=== PATIENT | female | born 1950 | race Caucasian/White ===

== ENCOUNTER 2019-09-28 12:18 | Inpatient (IN) | payer OTHER ==
[2019-09-27 13:11] VITALS: BMI 30.1
[~2019-09-28 12:18] MED LIST: PROPOFOL 200 MG/20 ML VIAL ONE
[2019-09-28] MEDS ORDERED: Fentanyl 100 MCG/2 ML VIAL ONE (15:09)
[2019-09-28] MEDS ORDERED: Acetaminophen 325 MG TAB PO PRN (16:13)
[2019-09-28] MEDS ORDERED: Dextrose 5% in Water 1,000 ML IV PRN (16:30)
[2019-09-28] MEDS ORDERED: Dextrose 50% Abboject 50 ML SYRINGE SLOW IVP PRN (16:30)
[2019-09-28] MEDS ORDERED: Sodium Chloride 0.9% (PF) 10 ML VIAL FS PRN (16:46)
[2019-09-28 18:42] LABS: #Basophils 0.1 thou/uL (0.0-0.2); #Eosinphils 0.5 thou/uL (0.0-0.7); #Lymphocytes 2.3 thou/uL (1.20-3.40); #Monocytes 0.7 thou/uL (0.11-0.59); #Neutrophils 6.5 thou/uL (1.40-6.50); %Eosinophils 5.2 % (0.0-10.0); %Lymphocytes 22.8 % (21.0-51.0); Hemoglobin 7.3 g/dL (12.0-16.0); Mean Corpuscular HGB CONC 31.9 g/dL (32.0-36.0); Mean Corpuscular Hemoglobin 28.8 pg (27.0-31.0); Mean Corpuscular Volume 90.3 fL (78.0-98.0); Mean Platelet Volume 7.1 fL (7.4-10.4); Platelet Count 387 thou/uL (130-400); RBC Distribution Width 15.2 % (11.5-14.5); Red Blood Cell (RBC) Count 2.53 mill/uL (4.20-5.40); White Blood Cell (WBC) Count 10.1 thou/uL (4.8-10.8)
[2019-09-28 18:48] LABS: PTT 26.8 SEC (22.9-36.1); Prothrombin Time 13.4 SEC (12.0-14.7)
[2019-09-28] MEDS ORDERED: [UNRECOGNIZED DRUG - REMARK] FS PRN (18:55)
[2019-09-28 19:06] LABS: ALT (SGPT) 15 U/L (8-55); AST (SGOT) 17 U/L (5-34); Albumin 3.6 g/dL (3.4-4.8); Alkaline Phosphatase 47 U/L (40-110); Anion Gap 7 mmol/L (10-20); BUN (Urea Nitrogen) 9 mg/dL (9.8-20.1); Bilirubin, Total 0.4 mg/dL (0.2-1.2); Calc. Creatinine Clearance 94 mL/min (70-130); Calcium 8.7 mg/dL (7.8-10.44); Carbon Dioxide 26 mmol/L (23-31); Chloride 109 mmol/L (98-107); Estimated GFR-MDRD 82; Globulin 2.4 g/dL (2.4-3.5); Glucose 110 mg/dL (80-115); Potassium 3.8 mmol/L (3.5-5.1); Sodium 138 mmol/L (136-145)
[2019-09-28] MEDS: Pantoprazole 40 MG VIAL IVP SCH (20:57)
[2019-09-28] MEDS: Atorvastatin Calcium 40 MG TAB PO SCH (20:57)
[2019-09-28] MEDS: Carvedilol 6.25 MG TAB PO SCH (20:57)
[2019-09-28] MEDS: HumaLOG 300 UNITS/3 ML VIAL SC PRN (20:58)
[2019-09-28] MEDS ORDERED: Carvedilol 6.25 MG TAB PO SCH (21:00)
[2019-09-28] MEDS ORDERED: TICAGRELOR 90 MG TABLET PO SCH (21:00)
--- NOTE | 2019-09-28 23:37 | HP ---
CHIEF COMPLAINT: Post EGD with bleeding duodenal ulcers. HISTORY OF PRESENT ILLNESS: This patient is a 69-year-old female who has a history of prior evidence of GI bleed and blood-loss anemia. The patient previously undergone EGD and colonoscopy a year ago that did not reveal any sources. She subsequently had recurrent anemia requiring transfusions and iron infusions. However, her anemia continue to recur. She subsequently underwent a capsule endoscopy, which revealed blood immediately upon entering the duodenum. Therefore, the patient was brought back for a repeat endoscopy today. Today, the patient had noted multiple duodenal ulcers, two of which had stigmata of high risk for bleeding and were cauterized. The patient is subsequently being admitted for GI bleed and continue monitoring of her hemoglobin. REVIEW OF SYSTEMS: Patient denies any upper abdominal pain. Reports occasional lower abdominal pain with cramping. She has had some melena. She did have some black stools, but always thought to possibly be related to some of the iron. All other systems reviewed. All pertinent positives and negatives noted in the HPI. PAST MEDICAL HISTORY: Notable for COPD, coronary artery disease with multiple stents, depression, hypertension, hypothyroidism, obstructive sleep apnea syndrome and type 2 diabetes mellitus. The patient does not report a history of ever being diagnosed with congestive heart failure. She does say that her heart has been very weak, but she also says she does not know her ejection fraction, but believes that she heard something about Dr. Arredondo indicating it was back up to around 60%. PAST SURGICAL HISTORY: She has had coronary artery bypass graft x2 vessels in August 2018. She has a total of approximately 10 coronary stents including one that was performed post CABG by Dr. Arredondo. She has had an appendectomy, hysterectomy, and placement of AICD with pacemaker. She has also had the above-mentioned colonoscopy in August and an EGD earlier in January. FAMILY HISTORY: Noncontributory. SOCIAL HISTORY: The patient is a nonsmoker, nondrinker. She is . She is full code and her son or daughter would be her surrogate decision makers. ALLERGIES: SULFA. CURRENT MEDICATIONS: 1. Aspirin 81 mg p.o. daily. 2. Brilinta 90 mg p.o. b.i.d. 3. Atorvastatin 40 mg p.o. daily. 4. Bupropion 150 mg p.o. daily. 5. Carvedilol 6.25 one p.o. daily. 6. Escitalopram 20 mg p.o. daily. 7. Lasix 40 mg p.o. daily. 8. Levothyroxine 25 mcg one p.o. daily. 9. Metformin 500 mg at bedtime. 10. Montelukast 10 mg p.o. daily. 11. ProAir HFA p.r.n. 12. Trilogy 10 mg p.o. daily. PHYSICAL EXAMINATION: VITAL SIGNS: Pulse is 87, blood pressure is 115/49, respirations 12, O2 saturation 92%. GENERAL APPEARANCE: Age-appropriate female, in no distress. She is awake, alert, oriented, pleasant, cooperative. HEENT: PERRL, no OP lesions. NECK: Supple and symmetric. No lymphadenopathy, JVD, or bruits. HEART: Regular rate and rhythm without murmurs, gallops or rubs. LUNGS: Clear to auscultation bilaterally. Good chest wall expansion, air exchange. ABDOMEN: Soft, nontender, and nondistended. Positive bowel sounds. No masses. No organomegaly. EXTREMITIES: No cyanosis or clubbing. She does have trace to 1+ pretibial edema. PSYCHIATRIC: Normal affect and behavior. NEUROLOGIC: The patient has spontaneous movement of all extremities with no focal deficits. IMPRESSION AND PLAN: 1. Acute gastrointestinal bleed with duodenal ulcers, status post cauterization. The patient will be on IV Protonix. Maintained a clear liquid diet and continue to monitor serial hemoglobin and hematocrit. Gastroenterology will continue to follow. 2. History of coronary artery disease, holding Brilinta and aspirin. 3. Likely some congestive heart failure, although it is not a confirmed diagnosis. She is on appropriate medications for such and given her history of the automatic implantable cardioverter-defibrillator, we would suspect she has an ejection fraction below 35%. We will be judicious with fluids. 4. Diabetes mellitus. Accu-Cheks and sliding scale insulin. 5. History of depression. Continue escitalopram. 6. Hypothyroidism. Continue the levothyroxine. 7. Hyperlipidemia. Continue atorvastatin. 8. Chronic obstructive pulmonary disease, on p.r.n. nebulizers. Job ID: [id number]
[2019-09-29] MEDS: Levothyroxine Sodium 25 MCG TAB PO SCH (05:27)
[2019-09-29] MEDS ORDERED: Levothyroxine Sodium 25 MCG TAB PO SCH (06:00)
[2019-09-29 06:19] LABS: #Basophils 0.1 thou/uL (0.0-0.2); #Eosinphils 0.7 thou/uL (0.0-0.7); #Monocytes 0.9 thou/uL (0.11-0.59); #Neutrophils 6.2 thou/uL (1.40-6.50); %Basophils 0.8 % (0.0-1.0); %Eosinophils 7.3 % (0.0-10.0); %Lymphocytes 20.1 % (21.0-51.0); %Neutrophils 62.9 % (42.0-75.0); Hemoglobin 8.5 g/dL (12.0-16.0); Mean Corpuscular HGB CONC 32.7 g/dL (32.0-36.0); Mean Corpuscular Hemoglobin 29.4 pg (27.0-31.0); Mean Corpuscular Volume 89.7 fL (78.0-98.0); Mean Platelet Volume 7.6 fL (7.4-10.4); Platelet Count 365 thou/uL (130-400); RBC Distribution Width 14.8 % (11.5-14.5); Red Blood Cell (RBC) Count 2.89 mill/uL (4.20-5.40); White Blood Cell (WBC) Count 9.9 thou/uL (4.8-10.8)
[2019-09-29] MEDS ORDERED: Bupropion 150 MG XL TAB PO SCH (09:00)
[2019-09-29] MEDS ORDERED: Escitalopram Oxalate 20 mg Tablet PO SCH (09:00)
[2019-09-29] MEDS ORDERED: Aspirin 81 mg Enteric Coated Tablet PO SCH (09:00)
[2019-09-29] MEDS: Bupropion 150 MG XL TAB PO SCH (09:17)
[2019-09-29] MEDS: Carvedilol 6.25 MG TAB PO SCH ×2 (09:17→20:26)
[2019-09-29] MEDS: Escitalopram Oxalate 20 mg Tablet PO SCH (09:17)
[2019-09-29] MEDS: Pantoprazole 40 MG VIAL IVP SCH ×2 (09:17→20:26)
--- NOTE | 2019-09-29 12:25 | PRG ---
DATE OF SERVICE: 09/29/2019 SUBJECTIVE: This is a 69-year-old female, hospitalized after EGD yesterday. Apparently, the patient had a capsule PillCam study on and was found to have active bleeding in the duodenum. She was brought in by Dr. Reyna for EGD. She underwent EGD with cauterization of the bleeding ulcer in the duodenum. She was hospitalized overnight for observation. She had done well overnight. She is not having any abdominal pain. No nausea or vomiting. She had a stool this morning which was dark, but subsequently, the next stool was brownish. Her blood count slightly overnight. Yesterday, hemoglobin was 7.3 and hematocrit was 22.8. Today, hemoglobin is 8.5 and hematocrit is 26.7. She offers no complaints. OBJECTIVE: GENERAL: Appears very comfortable. VITAL SIGNS: Afebrile, pulse is 68, blood pressure 153/77. CARDIOVASCULAR: First and second heart sounds are normal. LUNGS: Clear to auscultation. ABDOMEN: Soft. Abdomen is nondistended. Abdomen is nontender. No organomegaly. No masses. RECOMMENDATIONS: 1. heart-healthy diet. 2. Follow up H and H. If stable, consider discharging home tomorrow. May resume Brilinta from tomorrow. Job ID: [id number]
--- NOTE | 2019-09-29 14:16 | PDOC.HOSPP ---
- Subjective Encounter Date: 09/29/19 Encounter Time: 12:00 Subjective: is sitting in chair no nausea, vomiting or abd pain no active bleeding - Objective Vital Signs & Weight: Vital Signs (12 hours) Temp Pulse Pulse Resp BP BP BP 09/29/19 10:56 97.4 F L 68 16 153/77 H 09/29/19 07:11 98 F 69 16 148/73 H 09/29/19 03:27 98.0 F 73 18 115/62 09/29/19 03:12 99 F 74 16 119/68 Pulse Ox 09/29/19 10:56 97 09/29/19 07:11 95 09/29/19 03:27 09/29/19 03:12 99 Weight Weight 170 lb I&O: 09/28/19 09/29/19 09/30/19 06:59 06:59 06:59 Intake Total 1020 Balance 1020 Result Diagrams: 09/29/19 05:50 09/28/19 18:28 Additional Labs: Accuchecks 09/29/19 09/29/19 09/28/19 11:01 05:39 20:42 POC Glucose 177 H 156 H 198 H 09/28/19 18:07 POC Glucose 109 Hospitalist ROS - Medication Medications: Active Medications Generic Name Dose Route Start Last Admin Trade Name Freq PRN Reason Stop Dose Admin Acetaminophen 650 mg 09/28/19 16:13 09/29/19 00:51 Tylenol PO 650 mg Q4H PRN Administration Headache/Fever/Mild Pain (1-3) Atorvastatin Calcium 40 mg 09/28/19 21:00 09/28/19 20:57 Lipitor PO 40 mg HS ROXIE Administration Bupropion HCl 150 mg 09/29/19 09:00 09/29/19 09:17 Wellbutrin Xl PO 150 mg DAILY ROXIE Administration Carvedilol 6.25 mg 09/28/19 21:00 09/29/19 09:17 Coreg PO 6.25 mg BID ROXIE Administration Escitalopram Oxalate 20 mg 09/29/19 09:00 09/29/19 09:17 Lexapro PO 20 mg DAILY ROXIE Administration Insulin Human Lispro 0 units 09/28/19 16:30 09/28/19 20:58 Humalog SC 2 unit .MILD SLIDING SCALE PRN Administration Mild Correctional Scale Levothyroxine Sodium 25 mcg 09/29/19 06:00 09/29/19 05:27 Synthroid PO 25 mcg 0600 ROXIE Administration Pantoprazole Sodium 40 mg 09/28/19 21:00 09/29/19 09:17 Protonix IVP 40 mg Q12HR ROXIE Administration - Exam General Appearance: awake alert Eye: PERRL, anicteric sclera ENT: no oropharyngeal lesions, moist mucosa Neck: supple, no JVD Heart: RRR, no murmur Respiratory: no wheezes, no rales Gastrointestinal: soft, non-tender, non-distended, normal bowel sounds Extremities: no cyanosis, no edema Neurological: cranial nerve grossly intact, no focal deficits Psychiatric: normal affect, A&O x 3 Hosp A/P (1) GI bleed Code(s): K92.2 - GASTROINTESTINAL HEMORRHAGE, UNSPECIFIED Status: Acute Qualifiers: GI bleed type/associated pathology: duodenal ulcer Qualified Code(s): K26.4 - Chronic or unspecified duodenal ulcer with hemorrhage (2) Acute blood loss anemia Code(s): D62 - ACUTE POSTHEMORRHAGIC ANEMIA Status: Acute (3) CAD (coronary artery disease) Code(s): I25.10 - ATHSCL HEART DISEASE OF [place] CORONARY ARTERY W/O ANG PCTRS Status: Chronic Qualifiers: Coronary Disease-Associated Artery/Lesion type: bypass graft [place] vs. transplanted heart: [place] heart Associated angina: without angina Qualified Code(s): I25.810 - Atherosclerosis of coronary artery bypass graft(s) without angina pectoris (4) HTN (hypertension) Code(s): I10 - ESSENTIAL (PRIMARY) HYPERTENSION Status: Chronic Qualifiers: Hypertension type: essential hypertension Qualified Code(s): I10 - Essential (primary) hypertension (5) Dyslipidemia Code(s): E78.5 - HYPERLIPIDEMIA, UNSPECIFIED Status: Chronic (6) DM type 2 (diabetes mellitus, type 2) Status: Chronic Qualifiers: Diabetes mellitus long term care social worker insulin use: without fci use - Plan h/h around 07/02 got 1 u prbc yesterday had egd yesterday with findings of duodenal ulcer hemostable h/o cabg/cad with multiple stents on asp, lipitor, brillinta, coreg, metformin, bupropion, lexapro likely dc plan in am
[2019-09-29] MEDS ORDERED: metFORMIN 500 MG TAB PO SCH (17:00)
[2019-09-29] MEDS: Atorvastatin Calcium 40 MG TAB PO SCH (20:26)
[2019-09-30] MEDS: Levothyroxine Sodium 25 MCG TAB PO SCH (05:44)
[2019-09-30] MEDS: HumaLOG 300 UNITS/3 ML VIAL SC PRN (06:34)
[2019-09-30] MEDS: Bupropion 150 MG XL TAB PO SCH (09:03)
[2019-09-30] MEDS: Pantoprazole 40 MG VIAL IVP SCH (09:04)
[2019-09-30] MEDS: Carvedilol 6.25 MG TAB PO SCH (09:04)
[2019-09-30] MEDS: Escitalopram Oxalate 20 mg Tablet PO SCH (09:04)
[2019-09-30 10:35] LABS: #Basophils 0.1 thou/uL (0.0-0.2); #Eosinphils 0.5 thou/uL (0.0-0.7); #Monocytes 0.9 thou/uL (0.11-0.59); #Neutrophils 6.1 thou/uL (1.40-6.50); %Basophils 0.9 % (0.0-1.0); %Monocytes 9.4 % (0.0-10.0); %Neutrophils 63.7 % (42.0-75.0); Hemoglobin 9.1 g/dL (12.0-16.0); Mean Corpuscular HGB CONC 32.5 g/dL (32.0-36.0); Mean Corpuscular Volume 89.4 fL (78.0-98.0); Mean Platelet Volume 7.4 fL (7.4-10.4); Platelet Count 398 thou/uL (130-400); RBC Distribution Width 14.7 % (11.5-14.5); Red Blood Cell (RBC) Count 3.13 mill/uL (4.20-5.40); White Blood Cell (WBC) Count 9.6 thou/uL (4.8-10.8)
[2019-09-30 10:55] LABS: Anion Gap 9 mmol/L (10-20); BUN (Urea Nitrogen) 11 mg/dL (9.8-20.1); Calc. Creatinine Clearance 91 mL/min (70-130); Calcium 8.9 mg/dL (7.8-10.44); Carbon Dioxide 26 mmol/L (23-31); Chloride 108 mmol/L (98-107); Estimated GFR-MDRD 80; Glucose 128 mg/dL (80-115); Potassium 4.2 mmol/L (3.5-5.1); Sodium 139 mmol/L (136-145)
[2019-09-30 12:31] VITALS: BP 145/76; TEMP 97.8
--- NOTE | 2019-09-30 13:25 | PDOC.HOSPP ---
- Subjective Encounter Date: 09/30/19 Encounter Time: 11:35 Subjective: no abd pain or bleeding tolerating oral diet, is amb in room - Objective Vital Signs & Weight: Vital Signs (12 hours) Temp Pulse Resp BP Pulse Ox 09/30/19 11:33 97.8 F 72 18 145/76 H 94 L 09/30/19 07:19 98.5 F 74 18 136/71 94 L 09/30/19 03:36 98.2 F 77 16 137/76 98 Weight Weight 170 lb I&O: 09/29/19 09/30/19 10/01/19 06:59 06:59 06:59 Intake Total 1020 800 Balance 1020 800 Result Diagrams: 09/30/19 10:20 09/30/19 10:20 Additional Labs: Accuchecks 09/30/19 09/30/19 09/29/19 11:04 05:45 20:33 POC Glucose 118 H 176 H 155 H 09/29/19 16:04 POC Glucose 129 H Hospitalist ROS - Medication Medications: Active Medications Generic Name Dose Route Start Last Admin Trade Name Freq PRN Reason Stop Dose Admin Acetaminophen 650 mg 09/28/19 16:13 09/29/19 00:51 Tylenol PO 650 mg Q4H PRN Administration Headache/Fever/Mild Pain (1-3) Atorvastatin Calcium 40 mg 09/28/19 21:00 09/29/19 20:26 Lipitor PO 40 mg HS ROXIE Administration Bupropion HCl 150 mg 09/29/19 09:00 09/30/19 09:03 Wellbutrin Xl PO 150 mg DAILY ROXIE Administration Carvedilol 6.25 mg 09/28/19 21:00 09/30/19 09:04 Coreg PO 6.25 mg BID ROXIE Administration Escitalopram Oxalate 20 mg 09/29/19 09:00 09/30/19 09:04 Lexapro PO 20 mg DAILY ROXIE Administration Insulin Human Lispro 0 units 09/28/19 16:30 09/30/19 06:34 Humalog SC 2 unit .MILD SLIDING SCALE PRN Administration Mild Correctional Scale Levothyroxine Sodium 25 mcg 09/29/19 06:00 09/30/19 05:44 Synthroid PO 25 mcg 0600 ROXIE Administration Metformin HCl 500 mg 09/29/19 17:00 09/29/19 17:09 Glucophage PO 500 mg QPM-WM ROXIE Administration Pantoprazole Sodium 40 mg 09/28/19 21:00 09/30/19 09:04 Protonix IVP 40 mg Q12HR ROXIE Administration - Exam General Appearance: NAD, awake alert Eye: PERRL, anicteric sclera ENT: no oropharyngeal lesions, moist mucosa Neck: supple, no JVD Heart: RRR, no murmur Respiratory: no wheezes, no rales Gastrointestinal: soft, non-tender, non-distended, normal bowel sounds Extremities: no cyanosis, no edema Neurological: cranial nerve grossly intact, no focal deficits Psychiatric: normal affect, A&O x 3 Hosp A/P (1) GI bleed Code(s): K92.2 - GASTROINTESTINAL HEMORRHAGE, UNSPECIFIED Status: Acute Qualifiers: GI bleed type/associated pathology: duodenal ulcer Qualified Code(s): K26.4 - Chronic or unspecified duodenal ulcer with hemorrhage (2) Acute blood loss anemia Code(s): D62 - ACUTE POSTHEMORRHAGIC ANEMIA Status: Acute (3) CAD (coronary artery disease) Code(s): I25.10 - ATHSCL HEART DISEASE OF [place] CORONARY ARTERY W/O ANG PCTRS Status: Chronic Qualifiers: Coronary Disease-Associated Artery/Lesion type: bypass graft [place] vs. transplanted heart: [place] heart Associated angina: without angina Qualified Code(s): I25.810 - Atherosclerosis of coronary artery bypass graft(s) without angina pectoris (4) HTN (hypertension) Code(s): I10 - ESSENTIAL (PRIMARY) HYPERTENSION Status: Chronic Qualifiers: Hypertension type: essential hypertension Qualified Code(s): I10 - Essential (primary) hypertension (5) Dyslipidemia Code(s): E78.5 - HYPERLIPIDEMIA, UNSPECIFIED Status: Chronic (6) DM type 2 (diabetes mellitus, type 2) Status: Chronic Qualifiers: Diabetes mellitus teacher lip reading insulin use: without care home use - Plan h/h stable got 1 u prbc 09/28/19 had egd 09/28 with findings of duodenal ulcer hemostable h/o cabg/cad with multiple stents on asp, lipitor, brillinta, coreg, metformin, bupropion, lexapro may dc home if ok with GI
--- NOTE | 2019-09-30 15:23 | DIS ---
DATE OF ADMISSION: 09/28/2019 DATE OF DISCHARGE: 09/30/2019 DISCHARGE DISPOSITION: To home. PRIMARY DISCHARGE DIAGNOSES: 1. Gastrointestinal bleed with duodenal ulcer. 2. Acute blood loss anemia, stable. SECONDARY DISCHARGE DIAGNOSES: 1. Coronary artery disease. 2. Hypertension. 3. Dyslipidemia. 4. Diabetes mellitus, type 2. PROCEDURES DONE DURING HOSPITALIZATION: The patient has had 1 unit of packed cell transfusion done during her stay here. Discharge BUN and creatinine are 11 and 0.7. H and H are 7 and 22 on admission. Discharge H and H are 9 and 27, platelet count 398. PT, INR, and PTT within normal limits. DISCHARGE MEDICATIONS: 1. Protonix 40 mg p.o. twice daily. 2. Brilinta 90 mg p.o. twice daily. 3. Aspirin 81 mg p.o. daily. 4. Metformin 500 mg p.o. q.p.m. 5. Levothyroxine 25 mcg p.o. daily. 6. Lexapro 20 mg p.o. daily. 7. Coreg 6.25 mg p.o. twice daily. 8. Bupropion extended release 150 mg p.o. q.a.m. 9. Lipitor 40 mg p.o. at bedtime. ALLERGIES: ALLERGIC TO SULFA. INPATIENT CONSULT: Dr. Raymond for Gastroenterology. DISCHARGE PLAN: The patient to follow up with her primary care physician, Dr. Redman, in [address] Tyrell Reyna in 2 to 3 weeks. BRIEF COURSE DURING HOSPITALIZATION: The patient initially was sent from Dr. Tyrell Reyna, meters superintendent's office with findings of possible bleeding in the duodenal area on the capsule endoscopy. The patient had a repeat upper endoscopy done here by Dr. Reyna's and was found to have had a duodenal ulcer per Dr. Raymond, meters superintendent's notes. Post this procedure, the patient was admitted to medical floor. She has had 1 unit of packed cell transfusion done. She was slowly weaned into solid food. The patient is on aspirin, Brilinta along with her cardiac and diabetic medications. Her H and H have remained stable on serial checking. She has known history of coronary artery disease with prior stents in fact multiple per the patient. She needs to follow up with Dr. Reyna in 2 to 3 weeks and primary care physician in 1 week. Please note, I have seen and examined the patient on the day of discharge. She is cleared for discharge by Dr. Raymond. Job ID: [id number]
[2019-10-01] MEDS ORDERED: TICAGRELOR 90 MG TABLET PO SCH (09:00)
[2019-10-01] MEDS ORDERED: Aspirin 81 mg Enteric Coated Tablet PO SCH (09:00)
--- NOTE | 2019-10-01 12:30 | OP ---
DATE OF PROCEDURE: 09/28/2019 PROCEDURE: EGD with control of hemorrhage. INDICATION FOR PROCEDURE: Melena, positive abnormal GI imaging (capsule endoscopy showing duodenal bulb bleeding). DESCRIPTION OF PROCEDURE: After the risks and benefits of the procedure were explained to the patient including risks of bleeding, infection, perforation, reactions to anesthesia, aspiration, and/or pain, informed consent was obtained. The patient was then taken to the endoscopy suite, where she was placed in the left lateral decubitus position, followed by administration of propofol via Anesthesia support. Once adequate sedation was achieved, the standard gastroscope was introduced into the mouth with intubation of the esophagus, stomach, and the proximal small intestines with the findings listed below. The patient tolerated the procedure well with no immediate perioperative complications. Upon conclusion of the procedure, all equipment was removed from the patient and she was transferred to Day Stay in satisfactory condition with plans of admission to the hospital for further monitoring. FINDINGS: Esophagus: Normal-appearing mucosa was seen in the proximal, mid, and distal esophagus. There was no evidence of erosions, ulcerations, mass, lesions, or active/recent bleeding. Stomach: Mildly friable mucosa was seen throughout the entire stomach that did exhibit some increased redness and/or mild oozing of blood with passage of the gastroscope. However, there was no evidence of erosions, ulcerations, mass, lesions or recent bleeding. No biopsies were taken throughout the stomach given her increased risk of bleeding. Duodenum: Multiple small (2-3 mm) superficial ulcerations were seen in the duodenal bulb, two in particular did have adherent clot or red spot in the center of some them indicative of high-risk stigmata of bleeding. Both of these ulcerations were then intervened upon with bipolar cauterization with good hemostasis achieved. There was no bleeding noted at the end of the maneuver. Further examination of the second portion of the duodenum yielded normal mucosa. There was no evidence of mass lesions contributing to the bleeding. IMPRESSION: 1. Multiple small superficial ulcerations seen in the duodenal bulb and at the duodenal sweep with 2 ulcers displaying high-risk stigmata of bleeding status post bipolar cauterization. 2. Mildly increased friability of the gastric mucosa consistent with nonspecific gastropathy and concurrent anticoagulation. 3. The duodenal ulcerations being most likely source of the patient's chronic melena. RECOMMENDATIONS: 1. We would admit the patient to the hospital for further monitoring. Over the next 48 hours given the increased risk of rebleeding from these lesions during that time frame. 2. We would trend the patient's H and H and transfuse as necessary to maintain an H and H of 7/21. 3. We would clinically monitor signs of active GI bleeding. 4. We would hold any anticoagulation for the next 48 to 72 hours given increased risk of bleeding. 5. We would place the patient on a clear liquid diet given the interventions performed today and increased risk of rebleeding. 6. We would place the patient on pantoprazole 40 mg IV b.i.d. for the time being for mucosal protection. 7. We will continue to follow. Please call with any questions. Job ID: [id number]
== END 2019-09-30 16:04 | disposition home or self-care (01) | DRG 378 ==
LOC: SDC 12:18 → SJJU 17:15
PROVIDERS: ADMIT Internal Medicine; ATTEND Internal Medicine
PROC: 0W3P8ZZ Control Bleeding in Gastrointestinal Tract, Via Natural or Artificial Opening Endoscopic (ICD-10-PCS; principal; 2019-09-28)
PROC: 30233N1 Transfusion of Nonautologous Red Blood Cells into Peripheral Vein, Percutaneous Approach (ICD-10-PCS; 2019-09-28)
DX: K26.4 Chronic or unspecified duodenal ulcer with hemorrhage (principal); D62 Acute posthemorrhagic anemia; I25.810 Atherosclerosis of coronary artery bypass graft(s) without angina pectoris; J44.9 Chronic obstructive pulmonary disease, unspecified; F32.9 Major depressive disorder, single episode, unspecified; I10 Essential (primary) hypertension; E03.9 Hypothyroidism, unspecified; G47.33 Obstructive sleep apnea (adult) (pediatric); E78.5 Hyperlipidemia, unspecified; E11.9 Type 2 diabetes mellitus without complications; Z95.1 Presence of aortocoronary bypass graft; Z95.5 Presence of coronary angioplasty implant and graft; Z95.810 Presence of automatic (implantable) cardiac defibrillator; Z88.2 Allergy status to sulfonamides; Z79.82 Long term (current) use of aspirin; Z79.84 Long term (current) use of oral hypoglycemic drugs; Z79.890 Hormone replacement therapy; Z79.51 Long term (current) use of inhaled steroids; Z79.899 Other long term (current) drug therapy; Z87.891 Personal history of nicotine dependence
CPT/HCPCS: 36415; 36416; 36430; 80048; 80053; 85025; 85610; 85730; 86850; 86900; 86901; C9113; J2704; J3010; P9016

== ENCOUNTER 2019-10-22 11:57 | Inpatient (IN) | payer OTHER, MEDICARE ==
[2019-10-22 12:23] LABS: Bilirubin Negative (Negative); Blood, Urine Negative (Negative); Clarity Clear (Clear); Glucose, Urine (Dipstick) Normal (Negative); Leukocyte Negative Leu/uL (Negative); Nitrite Negative (Negative); Protein, Urine (Dipstick) Negative (Neg-Trace); Urobilinogen Normal mg/dL (Less than 2)
[2019-10-22 12:43] LABS: #Basophils 0.1 thou/uL (0.0-0.2); #Eosinphils 0.4 thou/uL (0.0-0.7); #Lymphocytes 2.2 thou/uL (1.20-3.40); #Monocytes 0.7 thou/uL (0.11-0.59); #Neutrophils 11.7 thou/uL (1.40-6.50); %Basophils 0.4 % (0.0-1.0); %Lymphocytes 14.7 % (21.0-51.0); %Monocytes 4.6 % (0.0-10.0); %Neutrophils 77.3 % (42.0-75.0); Hemoglobin 9.5 g/dL (12.0-16.0); Mean Corpuscular HGB CONC 32.2 g/dL (32.0-36.0); Mean Corpuscular Hemoglobin 27.7 pg (27.0-31.0); Mean Platelet Volume 7.9 fL (7.4-10.4); Platelet Count 431 thou/uL (130-400); RBC Distribution Width 15.2 % (11.5-14.5); Red Blood Cell (RBC) Count 3.43 mill/uL (4.20-5.40); White Blood Cell (WBC) Count 15.1 thou/uL (4.8-10.8)
[2019-10-22] MEDS ORDERED: Pantoprazole 40 MG VIAL ONE (12:56)
[2019-10-22] MEDS ORDERED: Pantoprazole 80 MG, Admixture Fee 1 EACH in Sodium Chloride 0.9% 100 ML IVPB SCH (13:00)
[2019-10-22 13:05] LABS: ALT (SGPT) 13 U/L (8-55); AST (SGOT) 14 U/L (5-34); Albumin 4.2 g/dL (3.4-4.8); Alkaline Phosphatase 69 U/L (40-110); Anion Gap 16 mmol/L (10-20); BUN (Urea Nitrogen) 19 mg/dL (9.8-20.1); Bilirubin, Total 0.4 mg/dL (0.2-1.2); Calc. Creatinine Clearance 0 mL/min (70-130); Carbon Dioxide 23 mmol/L (23-31); Chloride 100 mmol/L (98-107); Estimated GFR-MDRD 67; Glucose 157 mg/dL (80-115); Potassium 3.7 mmol/L (3.5-5.1); Protein, Total 7.2 g/dL (6.0-8.3); Sodium 135 mmol/L (136-145)
--- NOTE | 2019-10-22 16:39 | HP ---
PRIMARY CARE PHYSICIAN: Dr. Geri Matta PRODUCTION GENERALIST: Estiven Arredondo MD PHOTO TECHNOLOGIST: Tyrell Reyna MD CHIEF COMPLAINT: Melena. HISTORY OF PRESENT ILLNESS: This is a 69-year-old female with past medical history of coronary artery disease, status post CABG x2 in August 2018 and multiple percutaneous coronary interventions, most recently in May 2019, who was started on Brilinta at that time and has required recurrent PRBC transfusions for initially unspecified anemia and several weeks ago underwent outpatient capsule endoscopy suggesting brisk duodenal bleeding and was hospitalized in later September, where she underwent EGD on 09/28/2019, revealing a duodenal bulb ulcer with adherent clot requiring cauterization. At the time of discharge, she was stopped off both aspirin and Brilinta and scheduled resumption 4 days later, where again she had recurrent melenic stools with drop in hemoglobin to 6.7, requiring additional 2 units of PRBC transfusion at outside ER and withholding of dual anti-platelet therapy. One week ago, she was again cautiously restarted on aspirin 81 mg and Brilinta 90 mg every 12 hours and last night began to notice the formation of melenic stools that worsened this morning with 2 episodes in the absence of abdominal pain, hematemesis, hematochezia, near-syncope, or syncope, but with noted complaints of exertional fatigue. She called her collar setter overlock and was referred to ED for further evaluation. Labs in the ER revealed hemoglobin 9.5 with otherwise unremarkable vital signs. Her last dose of aspirin and Brilinta were this morning. She has been given 40 mg IV of Protonix push and started on IV Protonix drip and admitted for further inpatient evaluation. At bedside, the patient is accompanied by daughter. Both corroborate history. The patient offers no other acute complaints at this time. She notes a total of 8 units of blood transfusion in the past several months. She notes ecchymosis over her left eye in the past several days as well as bruising on her upper extremities, possibly attributed to Brilinta. She notes family history of colon cancer and reports last colonoscopy done months ago was otherwise unremarkable. She offers no anginal complaints. Family inquires about discontinuation and modification of anti- platelet therapy and have not sought recent follow up with clinic nurse, who apparently has been in discussion with GI doctor. The patient recently saw a primary care physician last week, where anemia profile was obtained in the setting of multiple recent blood transfusions and apparently , the patient was iron deficient and has been ordered 5 treatments of IV iron infusions, which she has not yet started. PAST MEDICAL HISTORY: Coronary artery disease, status post stenting x10, most recently in May 2019 and CABG x2 in August 2018. All of the patient's cardiac stents have been placed by Dr. Arredondo; recent hospitalization for upper GI bleed secondary to duodenal bulb ulcer with adherent clot requiring electrocautery on 09/28/2019, Dr. Reyna, AICD placement, appendectomy, hysterectomy with corrective surgery, left shoulder surgery, bilateral feet surgery. SOCIAL HISTORY: The patient lives at home. She is on nightly oxygen 2 L and CPAP machine. She admits to remote nicotine dependence, meeting physician for 16 years. She notes social alcohol intake. She is ambulatory without assistive device. ALLERGIES: SULFONAMIDES. REVIEW OF SYSTEMS: Pertinent positives as per HPI. Remainder of review of systems is negative. The patient denies any complaints of abdominal pain, hematemesis, hematochezia, near-syncope, syncope, or angina. She denies use of NSAIDs, steroids, or other ulcerogenic medications. MEDICATIONS: Home medications will be reviewed as per admission medication reconciliation. FAMILY HISTORY: The patient's mother had colon cancer. The patient is unknown of medical history in her father. PHYSICAL EXAMINATION: VITAL SIGNS: Temperature maximum afebrile; pulse 73, sinus rhythm; blood pressure 139/59; oxygen saturation 97% on room air; and respirations 16 to 18, unlabored. GENERAL APPEARANCE: Elderly female, who is awake, alert, and oriented, coherent , lucid, not in any obvious distress. HEENT: Eyes; pupils are equally round and reactive. Extraocular muscles intact. No scleral icterus. There is mild conjunctival pallor. There is mild ecchymosis overlying the left upper eyelid. NECK: Supple. CARDIOVASCULAR SYSTEM: S1 and S2. Regular rate and rhythm. No harsh murmurs. No reproducible chest wall tenderness to palpation. LUNGS: Bilateral equal air entry. Clear to auscultation. Nonlabored respiration. No wheezing or rales. ABDOMEN: Soft, nontender, and nondistended. No peritoneal signs. EXTREMITIES: No appreciable edema, cyanosis, or deformities. There is 3+ capillary refill in bilateral hands. SKIN: Warm to touch without rash or abrasions or any obvious skin pallor. LABORATORY VALUES: H and H of 9.5/29.5, MCV 86, RDW 15.2, platelets 431, and WBC 15.1. Sodium 135, potassium 3.7, chloride 100, bicarb 23, glucose 157, BUN and creatinine of 19/0.85, and GFR of 67. Urinalysis unremarkable. ASSESSMENT AND PLAN: 1. Acute upper gastrointestinal bleed. The patient will be admitted to inpatient status and placed on Med/Surg floor. We will hold dual anti-platelet therapy in the setting of known coronary artery disease with coronary artery bypass grafting x2 with multiple percutaneous coronary interventions, most recently in May 2019. We will continue IV Protonix drip. Noted recent esophagogastroduodenoscopy on 09/28/2019 with duodenal bulb ulcer with adherent clot requiring cauterization. GI has been consulted. Obtain serial H and H, type and screen, coagulation profile and transfuse for hemoglobin less than 7 g/dL. Maintain n.p.o. We will consult the patient's clinic nurse to assess the risk and benefit stratification of dual anti-platelet therapy in the setting of stent placement, unknown type, approximately 6 months ago and possible long-term transition to oral monotherapy and consideration of alternative anti-platelet agent if necessary as the patient has had significant 8 units of PRBC transfusion in the past several months. 2. Coronary artery disease. The patient has had coronary artery bypass grafting x2 in August 2018 and numerous percutaneous coronary interventions x10 starting possibly 10 years ago with most recent in May 2019. She has been on dual anti-platelet therapy with aspirin and Brilinta since most recent stent with repeated recent discontinuation due to acute blood loss anemia from gastrointestinal bleeding. We will consult patient's clinic nurse to assess risk factor stratification of long-term dual antiplatelet therapy in this patient with recurrent gastrointestinal bleeding and percutaneous coronary intervention approximately almost 6 months ago. 3. History of automatic implantable cardioverter defibrillator. 4. History of recent hospitalization in September 2019 for esophagogastroduodenoscopy. 5. History of multiple PRBC transfusions for acute blood loss anemia, most recently 1 week ago. 6. Benign hypertension. 7. Dyslipidemia. 8. Type 2 diabetes mellitus. Hold metformin at this time. 9. Chronic obstructive pulmonary disease, not in exacerbation. 10. Obstructive sleep apnea. Continue nightly oxygen 2 L and nightly CPAP per home settings. 11. Gastrointestinal prophylaxis with IV Protonix drip. Deep venous thrombosis prophylaxis. Lower extremity SCDs and ambulation. Chemical anticoagulation contraindicated due to gastrointestinal bleeding. Check a.m. labs and serial H and H. Disposition: Inpatient admission. Anticipate greater than 2-midnight stay. Code status: Full code. Plan of care discussed with the patient and the patient 's daughter at bedside. Job ID: [id number] MTDD
[2019-10-22 17:30] VITALS: BMI 30.1
[2019-10-22] MEDS ORDERED: Acetaminophen 650 MG/20.3 ML UDCUP PO PRN (17:35)
[2019-10-22] MEDS: Acetaminophen 325 MG TAB PO PRN (17:49)
--- NOTE | 2019-10-22 18:32 | CON ---
DATE OF CONSULTATION: 10/22/2019 REASON FOR CONSULT: "Recurrent melena." HISTORY OF PRESENT ILLNESS: Ms. Batista is a 69-year-old female, who has been seeing Dr. Reyna in the office with regard to prior history of bleed. She apparently had upper and lower endoscopies that were nonrevealing except for some polyps in August. The patient did underwent a capsule endoscopy, which suggested bleeding in the duodenum on 09/28/2018. An EGD was performed showing ulcers in the duodenal bulb. Apparently all this began shortly few months after starting Brilinta after cardiac stents were placed. The ulcers were very small 2 to 3 mm in size. There may have been a little bit of bleeding with a few of them apparently. There was some friability of the gastric mucosa as well. This was attributed to her chronic anticoagulation. The patient was admitted and observed for time, on discharge she was off the anticoagulation until recently she was restarted and then her hemoglobin dropped down to 6 and she had to be transfused last week apparently. The patient called Dr. Reyna's office and reported that she had some black stools yesterday, recommended readmission. Today, her hemoglobin was 9.5 at 12:30, white count was 15, and platelet count was 431. Sodium 135, potassium 3.7, and BUN and creatinine are normal at 19 and 0.85. Liver function tests are normal. PAST MEDICAL HISTORY: 1. CABG August 24 and multiple percutaneous interventions May 2019, she had stents placed and that is when Brilinta began. 2. Recurrent anemia since starting Brilinta with GI blood loss. Brilinta and aspirin restarted one week ago. AICD placement, appendectomy, hysterectomy, left shoulder surgery, and bilateral foot surgery. SOCIAL HISTORY: The patient lives at home. She is on oxygen 2 L, CPAP. Prior smoking. Denies alcohol. ALLERGIES: SULFA DRUGS. REVIEW OF SYSTEMS: No chest pain, shortness of breath, dyspnea on exertion, nausea, vomiting, hematemesis, or change in appetite. She denies use of NSAIDs other than the aspirin. MEDICATIONS: At home; 1. Metformin. 2. Roflumilast, which is Daliresp. 3. Potassium chloride. 4. Protonix. 5. Singulair. 6. Levothyroxine. 7. Furosemide. 8. Ellipta. 9. Iron sulfate. 10. Lexapro. 11. Carvedilol. 12. Bupropion. 13. Atorvastatin. 14. Albuterol. PHYSICAL EXAMINATION: VITAL SIGNS: Temperature is 98, pulse is 93, and blood pressure is 150/74. GENERAL: She is resting comfortably in bed. She is in no distress. LUNGS: Clear. HEART: Regular rate and rhythm without clicks or murmurs. ABDOMEN: Soft and nontender. No palpable hepatomegaly. HEENT: Left eye looks darker than the right. RECTAL: Reveals nothing in the rectal vault. EXTREMITIES: Reveal no clubbing, cyanosis, or edema. LABORATORY STUDIES: As per HPI. ASSESSMENT AND PLAN: Possible recurrent gastrointestinal bleeding, reported melena after restarting Brilinta and aspirin recently. She seems to have quite small lesions in her intestinal tract. It probably is that she is going to be intolerant to the Brilinta. Per Dr. Reyna's plan, we will plan for esophagogastroduodenoscopy tomorrow. We will hold Brilinta. I agree with proton pump inhibitor. Would hold iron. Job ID: [id number]
[2019-10-22 18:41] LABS: Hemoglobin 9.1 g/dL (12.0-16.0)
[2019-10-22 18:48] LABS: Prothrombin Time 13.1 SEC (12.0-14.7)
[2019-10-22] MEDS ORDERED: Dextrose 50% Abboject 50 ML SYRINGE SLOW IVP PRN (19:43)
[2019-10-22] MEDS ORDERED: Dextrose 5% in Water 1,000 ML IV PRN (19:43)
[2019-10-22] MEDS ORDERED: HumaLOG 300 UNITS/3 ML VIAL SC PRN (19:43)
[2019-10-22] MEDS: Atorvastatin Calcium 40 MG TAB PO SCH (20:49)
[2019-10-22] MEDS: Carvedilol 6.25 MG TAB PO SCH (20:49)
[2019-10-23 00:37] LABS: Hemoglobin 8.3 g/dL (12.0-16.0)
[2019-10-23] MEDS: Levothyroxine Sodium 25 MCG TAB PO SCH (05:35)
[2019-10-23] MEDS: Carvedilol 6.25 MG TAB PO SCH ×2 (05:35→20:02)
[2019-10-23 06:38] LABS: Hemoglobin 9.2 g/dL (12.0-16.0)
[2019-10-23] MEDS ORDERED: Prevnar 13-Val Conj/PF 0.5 ML SYRINGE IM ONE (09:00)
[2019-10-23] MEDS ORDERED: Roflumilast [Daliresp] 500 MCG PO SCH (09:00)
[2019-10-23] MEDS: Escitalopram Oxalate 20 mg Tablet PO SCH (10:11)
[2019-10-23] MEDS: Montelukast Sodium 10 mg Tablet PO SCH (10:11)
[2019-10-23] MEDS: Bupropion 150 MG XL TAB PO SCH (10:11)
[2019-10-23] MEDS: Acetaminophen 325 MG TAB PO PRN ×2 (10:17→18:13)
[2019-10-23] MEDS ORDERED: Lidocaine 1% PF 5 ML VIAL ONE (10:30)
[2019-10-23] MEDS ORDERED: PROPOFOL 200 MG/20 ML VIAL ONE (10:30)
[2019-10-23] MEDS: HumaLOG 300 UNITS/3 ML VIAL SC PRN ×2 (13:30→18:09)
[2019-10-23] MEDS ORDERED: traMADol HCl 50 MG TAB PO PRN (13:49)
[2019-10-23] MEDS ORDERED: traMADol HCl 50 MG TAB PO SCH (14:00)
--- NOTE | 2019-10-23 15:27 | PDOC.HOSPP ---
- Subjective Encounter Date: 10/23/19 Encounter Time: 15:25 Subjective: f/u GI bleed with duodenal ulcer s/p cauterization and hemoclips. No PRBC's needed and H/H stable currently. - Objective Vital Signs & Weight: Vital Signs (12 hours) Temp Pulse Resp BP BP Pulse Ox 10/23/19 11:38 97.7 F 75 20 106/66 93 L 10/23/19 10:07 97.5 F L 85 20 151/84 H 95 10/23/19 05:45 98.1 F 71 18 153/78 H 94 L 10/23/19 05:35 153/78 H 10/23/19 04:00 97.9 F 74 16 108/66 93 L Weight Weight 170 lb I&O: 10/22/19 10/23/19 10/24/19 06:59 06:59 06:59 Intake Total 560 Output Total 0 Balance 560 Result Diagrams: 10/23/19 06:23 10/22/19 12:34 Additional Labs: Accuchecks 10/23/19 10/23/19 10/22/19 11:34 06:03 20:56 POC Glucose 255 H 239 H 178 H Laboratory Tests 10/22/19 10/22/19 10/23/19 12:34 18:25 00:26 Hgb 9.5 L 9.1 L 8.3 L Hospitalist ROS - Medication Medications: Active Medications Generic Name Dose Route Start Last Admin Trade Name Freq PRN Reason Stop Dose Admin Acetaminophen 650 mg 10/22/19 17:43 10/23/19 10:17 Tylenol PO 650 mg Q6H PRN Administration Pain 1-3 Atorvastatin Calcium 40 mg 10/22/19 21:00 10/22/19 20:49 Lipitor PO 40 mg HS ROXIE Administration Bupropion HCl 150 mg 10/23/19 09:00 10/23/19 10:11 Wellbutrin Xl PO 150 mg DAILY ROXIE Administration Carvedilol 6.25 mg 10/22/19 21:00 10/23/19 05:35 Coreg PO 6.25 mg BID ROXIE Administration Escitalopram Oxalate 20 mg 10/23/19 09:00 10/23/19 10:11 Lexapro PO 20 mg DAILY ROXIE Administration Insulin Human Lispro 0 units 10/22/19 19:43 10/23/19 13:30 Humalog SC 4 unit .MILD SLIDING SCALE PRN Administration Mild Correctional Scale Levothyroxine Sodium 25 mcg 10/23/19 06:00 10/23/19 05:35 Synthroid PO 25 mcg 0600 ROXIE Administration Montelukast Sodium 10 mg 10/23/19 09:00 10/23/19 10:11 Singulair PO 10 mg DAILY ROXIE Administration Pantoprazole Sodium 40 mg 10/24/19 09:00 10/23/19 10:17 Protonix PO 40 mg DAILY ROXIE Administration Tramadol HCl 50 mg 10/23/19 14:00 10/23/19 13:59 Ultram PO 10/23/19 16:00 50 mg NOW ROXIE Administration - Exam General Appearance: NAD, awake alert Eye: PERRL, anicteric sclera ENT: normocephalic atraumatic, no oropharyngeal lesions Neck: supple, symmetric, no JVD, no thyromegaly Heart: RRR, no murmur, no gallops, no rubs, normal peripheral pulses Respiratory: CTAB, no wheezes, no rales, no ronchi, normal chest expansion Gastrointestinal: soft, non-tender, non-distended, normal bowel sounds, no palpable masses Extremities: no cyanosis, no clubbing, no edema Skin: normal turgor, no lesions Neurological: cranial nerve grossly intact, no new deficit Musculoskeletal: normal tone, normal strength Psychiatric: normal affect, A&O x 3 Hosp A/P (1) GI bleed Code(s): K92.2 - GASTROINTESTINAL HEMORRHAGE, UNSPECIFIED Status: Acute Qualifiers: GI bleed type/associated pathology: duodenal ulcer Qualified Code(s): K26.4 - Chronic or unspecified duodenal ulcer with hemorrhage Plan: s/p cauterization and hemoclip placement, continue PPI, avoid anticoagulation/ NSAIDs (2) Acute blood loss anemia Code(s): D62 - ACUTE POSTHEMORRHAGIC ANEMIA Status: Acute Plan: Stable H/H currently, repeat H/H in am (3) CAD (coronary artery disease) Code(s): I25.10 - ATHSCL HEART DISEASE OF [place] CORONARY ARTERY W/O ANG PCTRS Status: Chronic Qualifiers: Coronary Disease-Associated Artery/Lesion type: bypass graft [place] vs. transplanted heart: [place] heart Associated angina: without angina Qualified Code(s): I25.810 - Atherosclerosis of coronary artery bypass graft(s) without angina pectoris Plan: Stable currently, resume home regimen, holding ASA/Brilinta due to #1 (4) DM type 2 (diabetes mellitus, type 2) Status: Chronic Qualifiers: Diabetes mellitus jail insulin use: without ocean transportation intermediary use Plan: ISS, resume Metformin when tolerating po intake (5) HTN (hypertension) Code(s): I10 - ESSENTIAL (PRIMARY) HYPERTENSION Status: Chronic Qualifiers: Hypertension type: essential hypertension Qualified Code(s): I10 - Essential (primary) hypertension Plan: Resume home BP regimen, serial BP monitoring - Plan plan discussed w/ family, out of bed/ambulate, DVT proph w/SCDs Stable currently Continue PPI Hold ASA/Brilinta Resume home BP regimen AM lab: BMP, CBC Likely home in am
[2019-10-23] MEDS ORDERED: PROVENTIL INHALER 6.7 G (200 INHALATIONS) INH PRN (15:34)
--- NOTE | 2019-10-23 15:37 | OP ---
DATE OF PROCEDURE: 10/23/2019 PROCEDURES PERFORMED: Esophagogastroduodenoscopy with control of hemorrhage. PREOPERATIVE DIAGNOSES: Recurrent upper gastrointestinal bleed and anemia of acute blood loss on Brilinta with history of coronary artery stent placement. DESCRIPTION OF PROCEDURE: Informed consent was obtained from the patient. She was sedated with total intravenous anesthesia. The bite block was placed and the endoscope was advanced to the third portion of the duodenum and retroflexion was performed in the stomach. The esophagus was normal. The GE junction was normal. The stomach was normal including retroflexed views. The pylorus and first portions of the duodenum were normal. 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 These were winn red, but were not bleeding. They were cauterized with argon plasma coagulation. The scope was advanced as far as I could reach with the endoscope hubbed. At just beyond the tip of the endoscope in the third portion of the duodenum was a collection of active bleeding. The site was irrigated and another obvious 3 to 4 mm vascular ectasia was present and actively bleeding. This was cauterized with argon plasma coagulation. Despite multiple applications of cautery, the site continued to bleed. Of note, her last dose of Brilinta was yesterday. I placed a hemoclip directly over the bleeding site with excellent hemostasis achieved. The air was suctioned from the stomach and the procedure was completed. IMPRESSION: 1. Actively bleeding vascular ectasia in the third portion of the duodenum at the tip of the scope as far as I could reach with the standard endoscope. This was again actively bleeding and cauterized with argon plasma coagulation; however, the site continued to bleed and ultimately hemoclip was placed with good hemostasis confirmed. 2. Two additional vascular ectasias were cauterized in the second portion of the duodenum. 3. Otherwise unremarkable esophagogastroduodenoscopy. RECOMMENDATIONS: 1. Continue to hold Brilinta for now. 2. Follow trend of the hemoglobin. 3. If her hemoglobin stabilizes, we could potentially restart the Brilinta in 5 to 7 days. If she has recurrent bleeding after restarting the Brilinta, then it might be that she has multiple additional AVMs that could not be visualized and could potentially be scattered throughout the small bowel. Given that the site that was treated today was actively bleeding and had significant bleeding. Hopefully, this will take care of the recurrent bleeding issues and she will be able to restart her anti-platelet medication. Job ID: [id number]
[2019-10-23] MEDS: Atorvastatin Calcium 40 MG TAB PO SCH (20:03)
[2019-10-23] MEDS: Mometasone 100 MCG HFA INHALER INH SCH (21:01)
--- NOTE | 2019-10-23 22:17 | RAD ---
TWO VIEW CHEST: 10/23/19 HISTORY: Fever, cough. No comparison. Lungs show mild hyperexpansion. Heart is upper normal size with postop sternotomy change and pacemake r leads. Mild vascular engorgement. No focal infiltrate or significant effusion. IMPRESSION: Mild vascular congestion without focal infiltrate. POS: OFF
[2019-10-24] MEDS: Levothyroxine Sodium 25 MCG TAB PO SCH (05:24)
[2019-10-24] MEDS: Acetaminophen 325 MG TAB PO PRN ×2 (05:25→20:24)
[2019-10-24 05:34] LABS: #Basophils 0.1 thou/uL (0.0-0.2); #Eosinphils 0.4 thou/uL (0.0-0.7); #Lymphocytes 2.2 thou/uL (1.20-3.40); #Monocytes 0.9 thou/uL (0.11-0.59); %Basophils 0.6 % (0.0-1.0); %Eosinophils 3.2 % (0.0-10.0); %Lymphocytes 19.2 % (21.0-51.0); Hemoglobin 8.3 g/dL (12.0-16.0); Mean Corpuscular HGB CONC 32.2 g/dL (32.0-36.0); Mean Corpuscular Hemoglobin 27.9 pg (27.0-31.0); Mean Corpuscular Volume 86.7 fL (78.0-98.0); Mean Platelet Volume 7.9 fL (7.4-10.4); Platelet Count 352 thou/uL (130-400); RBC Distribution Width 15.2 % (11.5-14.5); Red Blood Cell (RBC) Count 2.98 mill/uL (4.20-5.40); White Blood Cell (WBC) Count 11.6 thou/uL (4.8-10.8)
[2019-10-24 05:44] LABS: Anion Gap 11 mmol/L (10-20); BUN (Urea Nitrogen) 10 mg/dL (9.8-20.1); Calc. Creatinine Clearance 86 mL/min (70-130); Calcium 8.8 mg/dL (7.8-10.44); Carbon Dioxide 27 mmol/L (23-31); Chloride 105 mmol/L (98-107); Estimated GFR-MDRD 75; Glucose 149 mg/dL (80-115); Potassium 3.6 mmol/L (3.5-5.1); Sodium 139 mmol/L (136-145)
[2019-10-24] MEDS: Mometasone 100 MCG HFA INHALER INH SCH ×2 (07:11→18:27)
[2019-10-24] MEDS: Ferrous Sulfate 325 MG TAB PO SCH (08:43)
[2019-10-24] MEDS: Furosemide 40 MG TAB PO SCH (08:44)
[2019-10-24] MEDS: Carvedilol 6.25 MG TAB PO SCH ×2 (08:44→20:20)
[2019-10-24] MEDS: Escitalopram Oxalate 20 mg Tablet PO SCH (08:44)
[2019-10-24] MEDS: Montelukast Sodium 10 mg Tablet PO SCH (08:44)
--- NOTE | 2019-10-24 09:05 | PRG ---
DATE OF SERVICE: 10/24/2019 REASON FOR CONSULTATION: Melena, bleeding arteriovenous malformation. SUBJECTIVE: Overnight, the patient states that she had run a fever that was associated with shaking/shivering chills. However, this was self-limiting and resolved fairly spontaneously. Since the EGD yesterday, she has not had any further episodes of melena nor has she had any bowel movements at all. She continues to feel weak with increased fatigue, but otherwise she denies any nausea, vomiting, hematemesis, melena, hematochezia, abdominal pain, diarrhea, or constipation. OBJECTIVE: VITAL SIGNS: Temperature 97.6, T-max of 100 on October 23, 2019, at 1825 hours, pulse 70, blood pressure 132/60, respiratory rate 18, saturating 92% on room air. GENERAL: The patient was sitting in a chair at bedside, in no acute distress. Alert and oriented x4. CARDIOVASCULAR: Regular rate, rhythm. RESPIRATORY: Clear to auscultation bilaterally. ABDOMEN: Normoactive bowel sounds. Soft, nontender, nondistended. EXTREMITIES: No cyanosis, clubbing, or edema. LABORATORY DATA: CBC with a white blood cell count of 11.6, hemoglobin 8.3, hematocrit 25.8, platelets 352. Chemistry with a sodium of 139, potassium 3.6, chloride 105, CO2 of 27, BUN 10, creatinine 0.77, glucose 149. IMAGING DATA: EGD was performed on October 23, 2019, which showed two 3 mm arteriovenous malformations in the second portion of the duodenum that were not actively bleeding and were intervened upon with argon plasma coagulation. However, with advancement of the scope to the extent of its reach, an additional 3 to 4 mm vascular ectasia was seen that was actively bleeding. This was ultimately intervened upon with argon plasma coagulation, but exhibited continued bleeding despite this measure. A hemoclip x1 was then placed over the lesion with good hemostasis achieved afterwards. Otherwise, normal findings on the upper endoscopy. ASSESSMENT AND PLAN: The patient is a 69-year-old female with past medical history of coronary artery disease, status post coronary artery bypass grafting in August 2018 and multiple percutaneous coronary interventions with stent placement, most recently in May 2019, presenting with upper gastrointestinal bleed secondary to arteriovenous malformation. Upper gastrointestinal bleeding. The patient initially presented to the hospital approximately 4 weeks ago when the patient was noted to have active bleeding on capsule endoscopy. EGD performed at that time showed small ulcerations within the duodenal sweep as well as small bleeding vascular ectasias that were intervened upon with bipolar cauterization. Upon discharge, the patient had been doing well for approximately 3 weeks when she began to experience increased fatigue in addition to dark black colored stools, stopping her Brilinta momentarily ceased the bleeding, but upon re-initiation of anticoagulation, she continued to bleed again. She was subsequently admitted to the hospital on October 22, 2019, with an EGD performed on October 23, 2019, showing the presence of 3 small arteriovenous malformations, one of which was actively oozing/bleeding. This bleeding lesion was intervened upon with argon plasma coagulation, but hemostasis could not be achieved until hemoclip x1 was placed over the lesion. At this time, the patient is doing better with no further evidence of GI bleeding and a normal BUN to creatinine ratio echoing that sentiment. However, she did have subjective fever and chills overnight concerning for possible aspiration in the postprocedure setting and may need continued monitoring for just another 24 hours. RECOMMENDATIONS: 1. Would continue to trend her H and H and transfuse as necessary to maintain an H and H of 7/21. 2. Continue to monitor clinically for signs of active GI bleeding. 3. Would continue to hold anticoagulation for at least 4 additional days before restarting. 4. Would continue to monitor patient for signs of aspiration pneumonia (although not present on physical exam today). 5. Pain control per primary team. 6. Would avoid any NSAIDs during this hospitalization as well. 7. Continue pantoprazole 40 mg at least daily, indefinitely. 8. Agree with iron supplementation given her anemia. We will continue to follow. Please call with any questions. Job ID: [id number]
--- NOTE | 2019-10-24 09:36 | PDOC.HOSPP ---
- Subjective Encounter Date: 10/24/19 Encounter Time: 09:30 Subjective: f/u s/p UGI bleeding with AVM's cauterized/hemoclips in duodenum. States feeling ok overall and tolerated regular po intake. No additional melena noted. - Objective Vital Signs & Weight: Vital Signs (12 hours) Temp Pulse Resp BP BP Pulse Ox 10/24/19 08:44 132/60 10/24/19 08:06 97.6 F 70 18 132/60 92 L 10/24/19 07:53 92 L 10/24/19 07:11 65 16 95 10/24/19 07:09 65 16 95 10/24/19 05:21 98.0 F 67 18 117/71 97 10/24/19 00:58 18 96 10/23/19 23:28 98.1 F 68 18 110/68 96 Weight Weight 170 lb I&O: 10/23/19 10/24/19 10/25/19 06:59 06:59 06:59 Intake Total 560 Output Total 0 Balance 560 Result Diagrams: 10/24/19 04:57 10/24/19 04:57 Additional Labs: Accuchecks 10/24/19 10/23/19 10/23/19 05:23 19:21 16:36 POC Glucose 161 H 157 H 216 H 10/23/19 11:34 POC Glucose 255 H Microbiology 10/23/19 21:30 Venous blood - Right Hand Blood Culture - Preliminary Specimen has been received and culture in progress. No Growth to date. 10/23/19 21:24 Venous blood - Left Hand Blood Culture - Preliminary Specimen has been received and culture in progress. No Growth to date. Laboratory Tests 10/22/19 10/22/19 10/23/19 12:34 18:25 00:26 Hgb 9.5 L 9.1 L 8.3 L 10/23/19 06:23 Hgb 9.2 L Radiology Reviewed by me: Yes (PCXR - no acute process) Hospitalist ROS - Medication Medications: Active Medications Generic Name Dose Route Start Last Admin Trade Name Freq PRN Reason Stop Dose Admin Acetaminophen 650 mg 10/22/19 17:43 10/24/19 05:25 Tylenol PO 650 mg Q6H PRN Administration Pain 1-3 Albuterol/Ipratropium 3 ml 10/23/19 19:00 10/24/19 07:09 Duoneb NEB 3 ml [id number] ROXIE Administration Atorvastatin Calcium 40 mg 10/22/19 21:00 10/23/19 20:03 Lipitor PO 40 mg HS ROXIE Administration Bupropion HCl 150 mg 10/23/19 09:00 10/23/19 10:11 Wellbutrin Xl PO 150 mg DAILY ROXIE Administration Carvedilol 6.25 mg 10/22/19 21:00 10/24/19 08:44 Coreg PO 6.25 mg BID ROXIE Administration Escitalopram Oxalate 20 mg 10/23/19 09:00 10/24/19 08:44 Lexapro PO 20 mg DAILY ROXIE Administration Ferrous Sulfate 325 mg 10/24/19 08:00 10/24/19 08:43 Feosol PO 325 mg QAM-WM ROXIE Administration Furosemide 40 mg 10/24/19 09:00 10/24/19 08:44 Lasix PO 40 mg DAILY ROXIE Administration Insulin Human Lispro 0 units 10/22/19 19:43 10/23/19 18:09 Humalog SC 3 unit .MILD SLIDING SCALE PRN Administration Mild Correctional Scale Levothyroxine Sodium 25 mcg 10/23/19 06:00 10/24/19 05:24 Synthroid PO 25 mcg 0600 ROXIE Administration Mometasone Furoate 1 puff 10/23/19 18:30 10/24/19 07:11 Asmanex Hfa 100 Mcg INH 1 puff BID-RT ROXIE Administration Montelukast Sodium 10 mg 10/23/19 09:00 10/24/19 08:44 Singulair PO 10 mg DAILY ROXIE Administration Pantoprazole Sodium 40 mg 10/24/19 09:00 10/24/19 08:43 Protonix PO 40 mg DAILY ROXIE Administration Tramadol HCl 50 mg 10/23/19 13:49 10/24/19 05:23 Ultram PO 50 mg Q6H PRN Administration Pain 4-6 - Exam General Appearance: NAD, awake alert Eye: PERRL, anicteric sclera ENT: normocephalic atraumatic, no oropharyngeal lesions Neck: supple, symmetric, no JVD, no thyromegaly Heart: RRR, no gallops, no rubs, normal peripheral pulses Respiratory: CTAB, no wheezes, no rales, no ronchi, normal chest expansion Gastrointestinal: soft, non-tender, non-distended, normal bowel sounds Extremities: no cyanosis, no clubbing, no edema Skin: normal turgor, no lesions Neurological: cranial nerve grossly intact, no new deficit Musculoskeletal: normal tone, normal strength, no muscle wasting Psychiatric: normal affect, A&O x 3 Hosp A/P (1) GI bleed Code(s): K92.2 - GASTROINTESTINAL HEMORRHAGE, UNSPECIFIED Status: Acute Qualifiers: GI bleed type/associated pathology: duodenal ulcer Qualified Code(s): K26.4 - Chronic or unspecified duodenal ulcer with hemorrhage Plan: Secondary to duodenal AVM's s/p cauterization/hemoclips, continue to monitor serial H/H, hold all anticoagulation/NSAIDs, continue Protonix (2) Acute blood loss anemia Code(s): D62 - ACUTE POSTHEMORRHAGIC ANEMIA Status: Acute Plan: Serial H/H monitoring, small decrease in last 12h (3) CAD (coronary artery disease) Code(s): I25.10 - ATHSCL HEART DISEASE OF [place] CORONARY ARTERY W/O ANG PCTRS Status: Chronic Qualifiers: Coronary Disease-Associated Artery/Lesion type: bypass graft [place] vs. transplanted heart: [place] heart Associated angina: without angina Qualified Code(s): I25.810 - Atherosclerosis of coronary artery bypass graft(s) without angina pectoris Plan: Chronic, stable, med mgmt (4) DM type 2 (diabetes mellitus, type 2) Status: Chronic Qualifiers: Diabetes mellitus buttermaker continuous churn insulin use: without buttermaker continuous churn use Plan: ISS, resume Metformin, serial accuchecks (5) HTN (hypertension) Code(s): I10 - ESSENTIAL (PRIMARY) HYPERTENSION Status: Chronic Qualifiers: Hypertension type: essential hypertension Qualified Code(s): I10 - Essential (primary) hypertension Plan: Stable, continue home BP regimen - Plan plan discussed w/ family, out of bed/ambulate Stable currently Continue PPI Hold ASA/Brilinta Resume home BP regimen AM lab: H/H Likely home in am
[2019-10-24] MEDS: Bupropion 150 MG XL TAB PO SCH (12:18)
[2019-10-24] MEDS: HumaLOG 300 UNITS/3 ML VIAL SC PRN ×2 (12:19→17:40)
[2019-10-24] MEDS ORDERED: metFORMIN 500 MG TAB PO SCH (17:00)
[2019-10-24] MEDS: Atorvastatin Calcium 40 MG TAB PO SCH (20:21)
[2019-10-25 05:23] LABS: #Basophils 0.1 thou/uL (0.0-0.2); #Eosinphils 0.4 thou/uL (0.0-0.7); #Lymphocytes 2.1 thou/uL (1.20-3.40); #Monocytes 0.9 thou/uL (0.11-0.59); %Eosinophils 5.2 % (0.0-10.0); %Lymphocytes 24.9 % (21.0-51.0); %Monocytes 10.3 % (0.0-10.0); %Neutrophils 58.6 % (42.0-75.0); Hemoglobin 8.6 g/dL (12.0-16.0); Mean Corpuscular HGB CONC 32.2 g/dL (32.0-36.0); Mean Corpuscular Hemoglobin 27.8 pg (27.0-31.0); Mean Corpuscular Volume 86.4 fL (78.0-98.0); Mean Platelet Volume 7.7 fL (7.4-10.4); Platelet Count 378 thou/uL (130-400); RBC Distribution Width 15.1 % (11.5-14.5); Red Blood Cell (RBC) Count 3.08 mill/uL (4.20-5.40); White Blood Cell (WBC) Count 8.5 thou/uL (4.8-10.8)
[2019-10-25] MEDS: Levothyroxine Sodium 25 MCG TAB PO SCH (06:04)
[2019-10-25] MEDS: Mometasone 100 MCG HFA INHALER INH SCH (07:39)
[2019-10-25] MEDS: Escitalopram Oxalate 20 mg Tablet PO SCH (08:52)
[2019-10-25] MEDS: Furosemide 40 MG TAB PO SCH (08:52)
[2019-10-25] MEDS: Carvedilol 6.25 MG TAB PO SCH (08:52)
[2019-10-25] MEDS: Ferrous Sulfate 325 MG TAB PO SCH (08:52)
[2019-10-25] MEDS: Montelukast Sodium 10 mg Tablet PO SCH (08:53)
[2019-10-25] MEDS: Bupropion 150 MG XL TAB PO SCH (08:53)
[2019-10-25 12:07] VITALS: BP 130/70; TEMP 98.2
[2019-10-25] MEDS: HumaLOG 300 UNITS/3 ML VIAL SC PRN (12:12)
--- NOTE | 2019-10-26 04:54 | DIS ---
DATE OF ADMISSION: 10/22/2019 DATE OF DISCHARGE: 10/25/2019 DISCHARGE DIAGNOSES: 1. Acute upper gastrointestinal bleed secondary to duodenal arteriovenous malformations. 2. Acute blood loss anemia, not requiring packed red blood cells. 3. Duodenal arteriovenous malformation, status post cauterization and hemoclip placement. 4. Coronary artery disease, chronic and stable. 5. Diabetes mellitus type 2, stable. 6. Hypertension, stable. CONSULTATIONS: Dr. Kwok, Dr. Hughes, and Dr. Reyna with GI Service. PERTINENT LABORATORY AND X-RAY FINDINGS: CBC showed a white blood cell count ranged between 8.5 to 15.1, hemoglobin ranged between 8.3 to 9.5. Blood cultures x2 dated 10/23/2019, showed no growth to date. Respiratory virus panel dated 10/23/2019, negative. EGD dated 10/23/2019, showed active bleeding of arteriovenous malformation in the third portion of the duodenum. HOSPITAL COURSE: The patient was admitted after initially presenting with melena in the context of chronic aspirin and Brilinta therapy. The patient was evaluated initially with hemoglobin noted at 9.5. The patient underwent evaluation by the GI Service, proceeding to EGD showing evidence of active bleeding of the third portion of the duodenum with arteriovenous malformations. The patient underwent a cauterization of 2 lesions with additional hemoclip placement to control bleeding. The patient was continued on her proton pump inhibitor throughout the hospital course and held on aspirin and Brilinta therapy. Serial H and H monitoring showed overall stable values and the patient remained clinically stable. Current recommendations are to remain off Brilinta and aspirin for approximately 1 week and repeat hemoglobin at the first followup visit. If the patient does experience recurrent bleeding after resumption of Brilinta, discussions will need to occur regarding discontinuation of that therapy. Overall, the patient remained clinically stable and tolerated regular oral intake. I have examined the patient at the time of discharge and discussed followup instructions. The patient verbalized understanding and agreement, ready for discharge on 10/25/2019. DISCHARGE MEDICATIONS: 1. ProAir HFA one puff inhaled q.4 hours p.r.n. 2. Lipitor 40 mg p.o. at bedtime. 3. Wellbutrin XL 150 mg p.o. daily. 4. Carvedilol 6.25 mg p.o. b.i.d. 5. Lexapro 20 mg p.o. daily. 6. Ferrous sulfate 325 mg p.o. daily. 7. Trelegy Ellipta one inhalation daily. 8. Lasix 40 mg p.o. daily. 9. Levothyroxine 25 mcg p.o. daily. 10. Metformin 500 mg p.o. at bedtime. 11. Singulair 10 mg p.o. daily. 12. Protonix 40 mg p.o. b.i.d. 13. Klor-Con 10 mEq p.o. daily. 14. Daliresp 500 mcg p.o. daily. 15. Aspirin 81 mg p.o. daily, resume on 10/30/2019. 16. Brilinta 90 mg p.o. b.i.d., resume on 11/02/2019. FOLLOWUP: The patient may follow up with her primary care provider, Юлия Matta within 7 days. The patient will follow up with Dr. Tyrell Reyna with GI Service and to call his office for appointment time and date. CONDITION ON DISCHARGE: Stable. ACTIVITY: Ad-lonnie. DIET: Heart healthy and ADA. CODE STATUS: Full. DISPOSITION: To home, 10/25/2019. TIME SPENT: Total time preparing and coordinating discharge, 32 minutes. Job ID: [id number]
== END 2019-10-25 13:34 | disposition home or self-care (01) | DRG 378 ==
LOC: ERS 11:57 → ERHOLD 13:28 → T4-B 15:50
PROVIDERS: ADMIT Hospitalist; ATTEND Hospitalist
PROC: 30233N1 Transfusion of Nonautologous Red Blood Cells into Peripheral Vein, Percutaneous Approach (ICD-10-PCS; principal; 2019-10-22)
PROC: 0W3P8ZZ Control Bleeding in Gastrointestinal Tract, Via Natural or Artificial Opening Endoscopic (ICD-10-PCS; 2019-10-23)
DX: K31.811 Angiodysplasia of stomach and duodenum with bleeding (principal); D62 Acute posthemorrhagic anemia; Z79.899 Other long term (current) drug therapy; I25.10 Atherosclerotic heart disease of native coronary artery without angina pectoris; Z95.1 Presence of aortocoronary bypass graft; Z79.82 Long term (current) use of aspirin; Z95.810 Presence of automatic (implantable) cardiac defibrillator; I10 Essential (primary) hypertension; E78.5 Hyperlipidemia, unspecified; E11.9 Type 2 diabetes mellitus without complications; J44.9 Chronic obstructive pulmonary disease, unspecified; G47.33 Obstructive sleep apnea (adult) (pediatric); Z88.2 Allergy status to sulfonamides; Z79.84 Long term (current) use of oral hypoglycemic drugs; T45.525A Adverse effect of antithrombotic drugs, initial encounter
CPT/HCPCS: 36415; 36416; 71046; 80048; 80053; 81003; 85014; 85018; 85025; 85610; 86850; 86900; 86901; 87040; 87633; 94640; 96365; 96376; C9113; J2001; J2704; J3490; J7620

== ENCOUNTER 2019-11-21 17:18 | Emergency (ER) | payer MEDICARE, OTHER ==
[2019-11-21 18:51] LABS: #Basophils 0.1 thou/uL (0.0-0.2); #Eosinphils 0.4 thou/uL (0.0-0.7); #Lymphocytes 2.5 thou/uL (1.20-3.40); #Monocytes 1.1 thou/uL (0.11-0.59); #Neutrophils 7.4 thou/uL (1.40-6.50); %Eosinophils 3.1 % (0.0-10.0); %Lymphocytes 21.5 % (21.0-51.0); %Monocytes 9.9 % (0.0-10.0); %Neutrophils 64.5 % (42.0-75.0); Mean Corpuscular HGB CONC 31.1 g/dL (32.0-36.0); Mean Corpuscular Hemoglobin 25.7 pg (27.0-31.0); Mean Corpuscular Volume 82.5 fL (78.0-98.0); Mean Platelet Volume 7.6 fL (7.4-10.4); Platelet Count 453 thou/uL (130-400); RBC Distribution Width 18.8 % (11.5-14.5); Red Blood Cell (RBC) Count 2.71 mill/uL (4.20-5.40); White Blood Cell (WBC) Count 11.5 thou/uL (4.8-10.8)
--- NOTE | 2019-11-21 19:04 | RAD ---
Chest one view HISTORY: Dyspnea. COMPARISON: 10/23/2019. FINDINGS: Cardiac silhouette is magnified by projection. Lungs remain hyperinflated. Widespread scarr ing is stable. Mediastinum is midline with aortic calcification, postoperative changes, and a dual lead left subclavian cardiac electronic device. No lobar consolidation or evidence of pneumothorax. P ostoperative changes right shoulder. IMPRESSION: Atherosclerosis. Chronic-type findings are stable.
[2019-11-21 19:36] LABS: PTT 24.3 SEC (22.9-36.1); Prothrombin Time 13.3 SEC (12.0-14.7)
[2019-11-21] MEDS ORDERED: Acetaminophen 500 MG TAB ONE (21:20)
== END 2019-11-22 02:05 | disposition home or self-care (01) ==
LOC: ERS 17:18
DX: D64.9 Anemia, unspecified (principal); I48.91 Unspecified atrial fibrillation; E78.5 Hyperlipidemia, unspecified; E11.9 Type 2 diabetes mellitus without complications; J44.9 Chronic obstructive pulmonary disease, unspecified; F41.9 Anxiety disorder, unspecified; F32.9 Major depressive disorder, single episode, unspecified; I11.0 Hypertensive heart disease with heart failure; I50.9 Heart failure, unspecified; Z87.891 Personal history of nicotine dependence; Z79.82 Long term (current) use of aspirin; Z79.899 Other long term (current) drug therapy; Z79.51 Long term (current) use of inhaled steroids; Z79.84 Long term (current) use of oral hypoglycemic drugs; Z79.891 Long term (current) use of opiate analgesic
CPT/HCPCS: 36415; 36430; 71045; 83880; 85025; 85610; 85730; 86850; 86900; 86901; 93005; P9016

== ENCOUNTER 2019-11-23 10:21 | Day surgery (SDC) | payer OTHER ==
[2019-11-22 12:46] VITALS: BMI 29.2
[2019-11-23] MEDS ORDERED: Fentanyl 100 MCG/2 ML VIAL ONE (11:47)
--- NOTE | 2019-11-23 19:19 | OP ---
DATE OF PROCEDURE: 11/23/2019 PROCEDURE PERFORMED: Esophagogastroduodenoscopy with control of hemorrhage. INDICATION FOR PROCEDURE: Melena, anemia, personal history of duodenal arteriovenous malformations. DESCRIPTION OF PROCEDURE: After the risks and benefits of the procedure were explained to the patient including risks of bleeding, infection, perforation, reactions to anesthesia, aspiration and/or pain, informed consent was obtained. The patient was then taken to the endoscopy suite, where she was placed in the left lateral decubitus position. Once the patient was in adequate position, deep sedation was administered via propofol and anesthesia support. Once adequate sedation was achieved, the standard gastroscope was introduced into the mouth with intubation of the esophagus, stomach, and the proximal small intestines with the findings listed below. The patient tolerated the procedure well with no immediate perioperative complications. Upon conclusion of the procedure, the patient was transferred to Day Stay in satisfactory condition. FINDINGS: Esophagus: Normal-appearing mucosa was seen in the proximal, mid, and distal esophagus. There was no evidence of erosions, ulcerations, mass lesions, or active/recent bleeding. Stomach: Normal-appearing mucosa was seen in the gastric cardia, fundus, body, greater curvature, antrum, and incisura. There was no evidence of erosions, ulcerations, mass lesions, or active/recent bleeding. Duodenum: Normal-appearing mucosa was seen within the duodenal bulb; however, a small pinpoint red spot was seen in the second portion of the duodenum/duodenal sweep without any evidence of active or recent bleeding. However, given her history of arteriovenous malformations and bleeding from these lesions, this was successfully intervened upon with argon plasma coagulation with good hemostasis achieved. No bleeding was noted at the end of the maneuver. Evaluation of the third portion of the duodenum was also undertaken with advancement of the scope to its maximum extent. At the maximum extent of the gastroscope, a small red spot was also seen that was minimally oozing blood (very minimally so). This was successfully intervened upon with APC with good hemostasis and no bleeding seen at the end of the maneuver. Otherwise, there was no evidence of ulcerations or mass lesions within the duodenum. IMPRESSION: 1. Two pinpoint arteriovenous malformations within the duodenal sweep and third portion of the duodenum successfully intervened upon with argon plasma coagulation with good hemostasis achieved. 2. Otherwise normal upper endoscopy. RECOMMENDATIONS: 1. Would hold all anticoagulation for the next 72 hours, then restart. 2. Would continue to monitor clinically for signs of active GI bleeding. 3. If the patient continues to exhibit increased melena, I would obtain a repeat H and H and transfuse as necessary to maintain an H and H of 05/27. 4. Continue PPI 40 mg b.i.d. 5. We would have the patient follow up in the GI clinic in 3 weeks for followup on this procedure. Job ID: [id number]
== END 2019-11-23 13:39 | disposition home or self-care (01) ==
LOC: SDC 10:21
PROVIDERS: ATTEND Internal Medicine
PROC: 0W3P8ZZ Control Bleeding in Gastrointestinal Tract, Via Natural or Artificial Opening Endoscopic (ICD-10-PCS; principal; 2019-11-23)
DX: K31.811 Angiodysplasia of stomach and duodenum with bleeding (principal); D64.9 Anemia, unspecified; Z79.51 Long term (current) use of inhaled steroids; Z79.82 Long term (current) use of aspirin; Z79.84 Long term (current) use of oral hypoglycemic drugs; Z79.899 Other long term (current) drug therapy; Z88.2 Allergy status to sulfonamides; Z91.048 Other nonmedicinal substance allergy status
CPT/HCPCS: J3010

== ENCOUNTER 2023-02-23 06:22 | Day surgery (SDC) | payer OTHER ==
[2023-02-22 11:03] VITALS: BMI 28.8
[2023-02-23] MEDS ORDERED: Ketamine 50 MG/ML (10ML VIAL) ONE (08:43)
[2023-02-23] MEDS ORDERED: PROPOFOL 200 MG/20 ML VIAL ONE (08:47)
[2023-02-23] MEDS ORDERED: Lidocaine 1% PF 5 ML VIAL ONE (08:47)
== END 2023-02-23 10:57 | disposition home or self-care (01) ==
LOC: SDC 06:22
PROVIDERS: ATTEND Internal Medicine
PROC: 0DBM8ZX Excision of Descending Colon, Via Natural or Artificial Opening Endoscopic, Diagnostic (ICD-10-PCS; principal; 2023-02-23)
PROC: 0D748ZZ Dilation of Esophagogastric Junction, Via Natural or Artificial Opening Endoscopic (ICD-10-PCS; principal; 2023-02-23)
PROC: 0DB38ZX Excision of Lower Esophagus, Via Natural or Artificial Opening Endoscopic, Diagnostic (ICD-10-PCS; principal; 2023-02-23)
PROC: 0DBL8ZX Excision of Transverse Colon, Via Natural or Artificial Opening Endoscopic, Diagnostic (ICD-10-PCS; principal; 2023-02-23)
PROC: 0DBK8ZX Excision of Ascending Colon, Via Natural or Artificial Opening Endoscopic, Diagnostic (ICD-10-PCS; principal; 2023-02-23)
PROC: 0DB18ZX Excision of Upper Esophagus, Via Natural or Artificial Opening Endoscopic, Diagnostic (ICD-10-PCS; principal; 2023-02-23)
DX: Z12.11 Encounter for screening for malignant neoplasm of colon (principal); D12.2 Benign neoplasm of ascending colon; D12.3 Benign neoplasm of transverse colon; D12.4 Benign neoplasm of descending colon; K21.00 Gastro-esophageal reflux disease with esophagitis, without bleeding; K22.2 Esophageal obstruction; K64.8 Other hemorrhoids; K64.4 Residual hemorrhoidal skin tags; K62.89 Other specified diseases of anus and rectum; K59.09 Other constipation; I10 Essential (primary) hypertension; E03.9 Hypothyroidism, unspecified; G47.33 Obstructive sleep apnea (adult) (pediatric); E11.9 Type 2 diabetes mellitus without complications; K44.9 Diaphragmatic hernia without obstruction or gangrene; I25.10 Atherosclerotic heart disease of native coronary artery without angina pectoris; Z80.0 Family history of malignant neoplasm of digestive organs; Z87.891 Personal history of nicotine dependence; Z79.82 Long term (current) use of aspirin; Z79.84 Long term (current) use of oral hypoglycemic drugs; Z79.85 Long-term (current) use of injectable non-insulin antidiabetic drugs; Z79.890 Hormone replacement therapy; Z79.899 Other long term (current) drug therapy; Z88.2 Allergy status to sulfonamides; Z91.048 Other nonmedicinal substance allergy status; Z95.1 Presence of aortocoronary bypass graft; Z95.5 Presence of coronary angioplasty implant and graft; Z95.810 Presence of automatic (implantable) cardiac defibrillator
CPT/HCPCS: 36416; 88305

== ENCOUNTER 2025-05-30 05:36 | Day surgery (SDC) | payer MEDICARE ==
[2025-05-28 16:08] VITALS: BMI 23.4
[2025-05-30] MEDS ORDERED: PROPOFOL 40 ML ONE (07:10)
== END 2025-05-30 09:05 | disposition home or self-care (01) ==
LOC: SDC 05:36
PROVIDERS: ATTEND Internal Medicine
PROC: 0DBK8ZZ Excision of Ascending Colon, Via Natural or Artificial Opening Endoscopic (ICD-10-PCS; principal; 2025-05-30)
PROC: 0DBN8ZZ Excision of Sigmoid Colon, Via Natural or Artificial Opening Endoscopic (ICD-10-PCS; 2025-05-30)
PROC: 0DB98ZX Excision of Duodenum, Via Natural or Artificial Opening Endoscopic, Diagnostic (ICD-10-PCS; 2025-05-30)
DX: D50.9 Iron deficiency anemia, unspecified (principal); D12.2 Benign neoplasm of ascending colon; D12.5 Benign neoplasm of sigmoid colon; K64.4 Residual hemorrhoidal skin tags; K57.30 Diverticulosis of large intestine without perforation or abscess without bleeding; K64.8 Other hemorrhoids; J44.9 Chronic obstructive pulmonary disease, unspecified; I10 Essential (primary) hypertension; E03.9 Hypothyroidism, unspecified; E11.9 Type 2 diabetes mellitus without complications; Z79.82 Long term (current) use of aspirin; Z79.890 Hormone replacement therapy; Z79.899 Other long term (current) drug therapy; Z86.0101 Personal history of adenomatous and serrated colon polyps; Z87.891 Personal history of nicotine dependence; Z88.2 Allergy status to sulfonamides
CPT/HCPCS: 43239; 45385; J2704; 88305; J7620